=== PATIENT | female | born 1945 | race Caucasian/White ===

== ENCOUNTER 2017-04-04 07:11 | Inpatient (IN) | payer OTHER ==
[2017-03-13 11:40] VITALS: BMI 38.0
--- NOTE | 2017-03-13 12:22 | PAT Medication Instructions ---
Service Date Mar 13, 2017. Current Home Medication List Aspirin (Aspirin Ec), 81 MG PO QAM Celecoxib (CeleBREX), 200 MG PO QAM PRN for PRN Cholecalciferol (Vitamin D-3), 1,000 UNITS PO QAM Cod Liver Oil (Cod Liver Oil), 1 TAB PO QAM Fluoxetine (Prozac), 40 MG PO QAM Levothyroxine Sodium (Synthroid), 100 MCG PO QAM Metoprolol Succinate (Toprol Xl), 25 MG PO QAM Ondansetron Hcl (Zofran), 8 MG PO PRN PRN for Nausea Simvastatin (Zocor), 40 MG PO HS Triamterene/Hctz (Triamterene/Hctz 37.5-25MG), 1 TAB PO QAM Medication Instructions For Your Scheduled Surgery - Check with surgeon for instructions: Celecoxib (CeleBREX), 200 MG PO QAM PRN for PRN - Hold the following medications 2 weeks prior to surgery: Cod Liver Oil (Cod Liver Oil), 1 TAB PO QAM - Hold the following medications the morning of surgery: Triamterene/Hctz (Triamterene/Hctz 37.5-25MG), 1 TAB PO QAM Cholecalciferol (Vitamin D-3), 1,000 UNITS PO QAM - Take the following medications the morning of surgery with a sip of water: Metoprolol Succinate (Toprol Xl), 25 MG PO QAM Ondansetron Hcl (Zofran), 8 MG PO PRN PRN for Nausea (if needed) Levothyroxine Sodium (Synthroid), 100 MCG PO QAM Fluoxetine (Prozac), 40 MG PO QAM Aspirin (Aspirin Ec), 81 MG PO QAM (okay to continue per surgeon) - Take the following medications as scheduled the night before surgery: Simvastatin (Zocor), 40 MG PO HS Ondansetron Hcl (Zofran), 8 MG PO PRN PRN for Nausea (if needed) If you have any questions please call us at [phone] or [phone] or [phone]
--- NOTE | 2017-03-13 13:09 | DIAGNOSTIC IMAGING REPORT ---
CHEST PREADMISSION(PA/LAT) CLINICAL HISTORY: PAT preoperative evaluation COMPARISON STUDY: 05/13/2015 FINDINGS: The bones soft tissues and hemidiaphragms are normal. The cardiomediastinal silhouette is normal. The lungs are clear. The pulmonary vasculature is normal. IMPRESSION: Negative chest. The above report was generated using voice recognition software. It may contain grammatical, syntax or spelling errors. Electronically signed by: El Burch M.D. 03/13/2017 1:07 PM Dictated Date/Time: 03/13/2017 1:07 PM
[2017-03-13 13:33] LABS: BASO % 0.3 %; BASO ABS # 0.01 K/uL (0-0.2); COMPLETE YES; EOS % 5.7 %; HEMATOCRIT 45.8 % (37-47); IG% 0.3 %; LYMPH % 24.5 %; LYMPH ABS # 0.91 K/uL (1.2-3.4); MEAN CELL VOLUME 89.5 fL (80-100); MEAN CORPUSCULAR HEMOGLOBIN 28.3 pg (25-34); MEAN CORPUSCULAR HGB CONC 31.7 g/dl (32-36); MEAN PLATELET VOLUME 10.1 fL (7.4-10.4); NEUT % 55.2 %; PLATELET COUNT 155 K/uL (130-400); RED BLOOD COUNT 5.12 M/uL (4.2-5.4); WHITE BLOOD COUNT 3.71 K/uL (4.8-10.8)
[2017-03-13 13:48] LABS: PARTIAL THROMBOPLASTIN RATIO 0.9; PROTHROMBIN TIME (PATIENT) 10.3 SECONDS (9.0-12.0)
[2017-03-13 13:55] LABS: ESTIMATED AVERAGE GLUCOSE 120 mg/dl; HA1C FLAG Normal (Normal)
[2017-03-13 13:59] LABS: URINE APPEARANCE CLEAR (CLEAR); URINE BILIRUBIN NEG (NEG); URINE COLOR YELLOW; URINE NITRITE NEG (NEG); URINE PH 6.5 (4.5-7.5); URINE SPECIFIC GRAVITY 1.025 (1.000-1.030); UROBILINOGEN NEG (NEG)
[2017-03-13 14:06] LABS: MANUAL MICROSCOPIC REQUIRED? NO; REVIEW REQ? NO
--- NOTE | 2017-04-03 13:50 | HISTORY & PHYSICAL EXAMINATION ---
DATE OF ADMISSION: 04/04/2017 CHIEF COMPLAINT: Right hip pain. HISTORY OF PRESENT ILLNESS: The patient is a 71-year-old female with known osteoarthritis about her right hip. She is required to use a cane for ambulation due to pain. She has pain with prolonged weightbearing and standing activities. She has difficulty with any kneeling, bending, or squatting activities. Due to ongoing pain and disability, she now desires to proceed with right total hip arthroplasty. PAST MEDICAL HISTORY: Hypertension, hypercholesterolemia, unstable angina, sinus bradycardia, hypothyroidism. PAST SURGICAL HISTORY: Bilateral knee replacements by Dr. Oconnor. MEDICATIONS: Aspirin 81 mg daily, Celebrex 200 mg 2 times daily as needed, fluoxetine 40 mg daily, levothyroxine 100 mcg daily, omeprazole 20 mg before meal as needed, simvastatin 40 mg daily. ALLERGIES: ADHESIVES CAUSES A RASH, IODINE. SOCIAL HISTORY AND REVIEW OF SYSTEMS: Noncontributory. PHYSICAL EXAMINATION: GENERAL: Well-nourished, well-developed elderly female who appears her stated age. HEAD, EYES, EARS, NOSE, AND THROAT: Normocephalic, atraumatic, extraocular movements intact, oropharynx pink and moist. NECK: Supple without adenopathy. LUNGS: Clear to auscultation bilaterally. HEART: Regular rate and rhythm. ABDOMEN: Soft, nontender, nondistended, obese. EXTREMITIES: The upper extremities are within normal limits. The right hip demonstrates limited range of motion. There is limitation of active and passive internal/external rotation with pain. X-RAYS: X-rays were reviewed. She has moderate to severe osteoarthritis about the right hip with near complete loss of the joint space. There are large osteophytes about the femoral head and acetabulum. ASSESSMENT: Right hip degenerative joint disease. PLAN: Risks versus benefits were discussed. Consent was obtained. The patient's primary care physician is Dr. Cookie Palumbo from [place], her wound/ostomy clinical nurse specialist is Dr. Romero from [place]. Will proceed with right total hip arthroplasty upon preop workup and medical clearance.
[~2017-04-04] VITALS: Ht 172.7 cm; Wt 114.2 kg
[2017-04-04] VITALS (7 sets, daily range): BP systolic 114–167; BP diastolic 67–86; PULSE 57–63; TEMP 36.5–36.7; O2SAT 94–100; Ht 172.7 cm; Wt 114.2 kg
[~2017-04-04 07:11] MED LIST: ACETAMINOPHEN 500 MG TAB PO SCH; ASPI81TA28 PO; BUPIVACAINE 0.5 % 5 MG/1 ML PF 10ML VIAL ONE; CEFAZOLIN 2000 MG/60 ML D5W IV SCH; CHOL1TAB2 PO; CLB/200 PO; CODCAP PO; CeleBREX 200 MG CAP PO SCH; DEXAMETHASONE 4 MG TAB PO SCH; FAMOTIDINE 20 MG TAB PO SCH; FLUO40CA8 PO; GABAPENTIN 300 MG CAP PO SCH; LACTATED RINGER'S 1000ML 1,000 ML IV SCH; LACTATED RINGER'S 1000ML 500 ML IV ONE; LEVO100T PO; METOCLOPRAMIDE HCL 10 MG TAB PO SCH; OMEP20CA9 PO; ONDA8TAB6 PO; ROPIVACAINE 5MG/ML 30 ML 150 MG, BUPIVACAINE/EPINEPHR 0.5% MPF 30 ML, KETOROLAC TROMETH... INFIL SCH; ZCRT/40 PO
[2017-04-04] MEDS ORDERED: ONDANSETRON INJ 2 MG/ML 2 ML VIAL ONE (07:49)
[2017-04-04] MEDS ORDERED: LIDOCAINE HCL 2% 2 ML VIAL (20MG/ML) ONE (07:49)
[2017-04-04] MEDS ORDERED: PROPOFOL IV EMULSION 10 MG/ML 20 ML VIAL IV ONE (07:49)
[2017-04-04] MEDS ORDERED: MIDAZOLAM HCL 1 MG/ML 2ML VIAL ONE (07:50)
[2017-04-04] MEDS ORDERED: FENTANYL CITRATE INJ 50 MCG/1 ML 2 ML VIAL ONE (07:50)
[2017-04-04] MEDS ORDERED: METO25TA3 PO (08:04)
[2017-04-04] MEDS ORDERED: CeleBREX 200 MG CAP ONE (08:43)
[2017-04-04] MEDS ORDERED: DEXAMETHASONE 4 MG TAB ONE (08:43)
[2017-04-04] MEDS ORDERED: METOCLOPRAMIDE HCL 10 MG TAB PO ONE (08:43)
[2017-04-04] MEDS ORDERED: POVIDONE-IODINE OP SOLN 30 ML BTL ONE (08:43)
[2017-04-04] MEDS ORDERED: GABAPENTIN 300 MG CAP PO ONE (08:43)
[2017-04-04] MEDS ORDERED: FAMOTIDINE 20 MG TAB ONE (08:43)
[2017-04-04] MEDS ORDERED: BACITRACIN 50000 UNIT VIAL ONE (08:43)
[2017-04-04] MEDS ORDERED: ORTHO JOINT ANESTHETIC ONE (08:43)
[2017-04-04] MEDS ORDERED: ACETAMINOPHEN 500 MG TAB PO ONE (08:43)
[2017-04-04] MEDS ORDERED: NURSING VERBAL MED ORDER ONE (09:00)
[2017-04-04] MEDS ORDERED: EpHEDrine SULFATE INJ 50 MG/ML AMP IV PRN (09:00)
[2017-04-04] MEDS ORDERED: ONDANSETRON INJ 2 MG/ML 2 ML VIAL IV PRN ×2 (09:00→11:30)
[2017-04-04] MEDS ORDERED: FENTANYL CITRATE INJ 50 MCG/1 ML 2 ML VIAL IV PRN (09:00)
[2017-04-04] MEDS ORDERED: ATROPINE SULFATE 0.1 MG/ML 5ML SYR IV PRN (09:00)
--- NOTE | 2017-04-04 09:20 | History & Physical Bridge Note ---
H&P Re-Evaluation Bridge Note: I have examined the patient, reviewed the History & Physical and in the interval since the performance of the History & Physical I have noted the following changes of clinical significance: No changes noted
--- NOTE | 2017-04-04 10:43 | [facility] Operative Report ---
Operative Report Operative Date Apr 04, 2017. Pre-Operative Diagnosis Right hip degenerative joint disease Post-Operative Diagnosis Right hip degenerative joint disease Procedure(s) Performed Right total hip arthroplasty Surgeon Dr. Britt Vilchis Head Of Ict Surgeon(s) Mao West PA-C Estimated Blood Loss 150 mL Findings oa Specimens A: Right femoral head Drains privina and hemovac Disposition Recovery Room / PACU I attest to the content of the Intraoperative Record and any orders documented therein. Any exceptions are noted below.
[2017-04-04] MEDS ORDERED: MoRPHine SULFATE 2 MG/ML CARP IV PRN (11:30)
[2017-04-04] MEDS ORDERED: ALUMINUM/MAGNESIUM/SIMETH (MAALOX MAX) 30 ML UDC PO PRN (11:30)
[2017-04-04] MEDS ORDERED: METOCLOPRAMIDE HCL INJ 5 MG/ML 2 ML VIAL IV PRN (11:30)
[2017-04-04] MEDS ORDERED: ZOLPIDEM TARTRATE 5 MG TAB PO PRN (11:30)
[2017-04-04] MEDS ORDERED: MAGNESIUM HYDROXIDE SUSP 30 ML UDC PO PRN (11:30)
[2017-04-04] MEDS ORDERED: OXYCODONE HCL IR 5 MG TAB (IMMEDIATE RELEASE) PO PRN (11:30)
--- NOTE | 2017-04-04 11:31 | OPERATIVE REPORT ---
DATE OF OPERATION: 04/04/2017 PREOPERATIVE DIAGNOSIS: Osteoarthritis right hip. POSTOPERATIVE DIAGNOSIS: Osteoarthritis right hip. PROCEDURE: Right connective total hip arthroplasty. SURGEON: Dr. Contreras. LASER BEAM COLOR SCANNER OPERATOR: Mao West PA-C. ANESTHESIA: Spinal. COMPLICATIONS: None. OPERATION AND FINDINGS: PROCEDURE: Following induction of adequate spinal anesthesia, the patient was placed in left lateral decubitus position and right Krystyna-Langenbeck incision was made. Subcutaneous tissue was sharply dissected. Electrocautery used for hemostasis. The fascia was incised throughout the length of the wound and a david scissor placed beneath the short external rotators. The pyriformis was tagged with #1 Vicryl. The short external rotators were divided from the posterior aspect of the femur using electrocautery. These were swept posteriorly. A T-capsulotomy incision was made and the hip was dislocated using a combination of flexion, adduction, and internal rotation. Exposure of the femoral neck with old-style Hohmann and a blunt Hohmann was carried out and a femoral rasp was utilized as a guide for making the appropriate level femoral neck cut. This bone fragment was removed and reserved on the back table. Next, attention was turned to the acetabulum where bone hook was used to retract the femur while the offset retractors were placed anterior and posteriorly. A double-angled Hohmann was placed in superior and anterior position exposing the acetabulum nicely. Acetabular labrum as well as posterior capsule elements were removed using a long knife and a long pickup. Fovea centralis was cleared of all soft tissue. Sequential reamings were carried up to a size 52 and decision was made to proceed with impaction of a size 52 trabecular metal cup. This was impacted and held using a single 35 mm bone screw. The acetabular liner was placed with 15 of elevated posterior wall in the superior and posterior position. Next, attention was turned to the femoral portion of the case where a Bovie and pickup was used to further clear short external rotators from their insertion on the femur. Box osteotome was used to gain access to the femoral canal and the T-handled rasp and a rattail rasp were used to further open and lateral the canal. Sequentially raspings were carried up to a size 5 which gave good fit and fill of the proximal femur. A trial reduction was carried out and size 5 offset femoral neck component was chosen as the size to be used. A -2.5 x 36 mm ceramic femoral head was impacted into position, +0 head was utilized. The trial reduction was stable in all degrees of rotation with no [id number] impingement. The hip was dislocated. The trial components were removed and the final femoral stem, neck, and femoral head combination were assembled on the back table and impacted into position. Hip was relocated. Range of motion checked once again successful and the wound was irrigated. The pyriformis repaired to the greater trochanter using #1 Vicryl [id number] suture. A Hemovac drain was placed and the fascia was closed using #1 Vicryl, subcutaneous tissue was closed using 0 Dexon, and skin was closed with abebe. Sterile dressing of Adaptic, 4 x 4's, ABDs, and foam tape was applied. The patient tolerated the procedure well. Recovery room stable. Due to the complex nature of the procedure, the entire surgery was performed with the operational assistance of Mao West PA-C. The financial assistant, under direct supervision, was involved in the actual performance of all aspects of the surgical procedure including hemostasis, tissue retraction and incision, instrument management, patient positioning, and wound closure. I attest to the content of the Intraoperative Record and any orders documented therein. Any exception s are noted below.
--- NOTE | 2017-04-04 11:53 | DIAGNOSTIC IMAGING REPORT ---
AP PELVIS AND RIGHT HIP 2 VIEWS CLINICAL HISTORY: Postop hip arthroplasty COMPARISON STUDY: No previous studies for comparison. FINDINGS: There are postsurgical changes of a total right hip arthroplasty. Acetabular femoral components appear well seated. There is no dislocation. No acute fractures are visualized. There is an overlying surgical drain. IMPRESSION: Postsurgical changes of a total right hip arthroplasty. Electronically signed by: Newton Valles M.D. 04/04/2017 11:51 AM Dictated Date/Time: 04/04/2017 11:50 AM
--- NOTE | 2017-04-04 12:25 | Anesthesiology Progress Note ---
Anesthesia Post Op Note Date & Time Apr 04, 2017 at 12:24 Vital Signs Pain Intensity: 0 Vital Signs Past 12 Hours Date Time Temp Pulse Resp B/P (MAP) Pulse Ox O2 Delivery O2 Flow Rate FiO2 04/04/17 12:20 63 16 128/73 98 Nasal Cannula 2 04/04/17 12:10 63 16 118/82 98 Nasal Cannula 2 04/04/17 12:00 63 16 143/82 98 Nasal Cannula 2 04/04/17 11:50 37.1 63 16 135/82 100 Nasal Cannula 2 04/04/17 11:40 63 16 114/77 100 Nasal Cannula 2 04/04/17 11:30 63 16 124/72 100 Nasal Cannula 4 04/04/17 11:20 63 16 134/75 100 Nasal Cannula 4 04/04/17 11:14 36.1 63 16 119/76 99 Nasal Cannula 4 04/04/17 08:00 36.6 63 20 167/86 100 Room Air Notes Mental Status: alert / awake / arousable, participated in evaluation Pt Amnestic to Procedure: Yes Nausea / Vomiting: adequately controlled Pain: adequately controlled Airway Patency, RR, SpO2: stable & adequate BP & HR: stable & adequate Hydration State: stable & adequate Neuraxial Anesthesia: was administered, sensory block is resolving Anesthetic Complications: no major complications apparent
[2017-04-04] MEDS ORDERED: MoRPHine SULFATE 4 MG/ML 1 ML CARP\\VIAL IV PRN (13:30)
--- NOTE | 2017-04-04 14:15 | Medical Consult ---
Consultation Date of Consultation: Apr 04, 2017. Attending Physician: Kb Contreras M.D. Reason for Consultation: postop medical management History of Present Illness Patient seen and examined after undergoing PAOLA today by Dr. Contreras. Patient is doing well, eating lunch. No postop pain yet. Denies fever, dizziness, chest pain, SOB, N/V. Has not voided yet after procedure. Last BM was yesterday. Past Medical/Surgical History Medical Problems: (1) HTN (hypertension) Status: Chronic (2) Hyperlipidemia Status: Chronic (3) Hypothyroidism Status: Chronic (4) Mild nonobstructive CAD Permanent Comment: on 2016 Status: Chronic (5) Sinus bradycardia Status: Chronic Surgical Problems: (1) H/O tubal ligation Status: Chronic (2) History of cataract surgery Status: Chronic (3) S/P appendectomy Status: Chronic (4) S/P foot surgery Status: Chronic (5) S/P knee replacement Permanent Comment: bilateral Status: Chronic (6) S/P placement of cardiac pacemaker Permanent Comment: 03/20/17 Status: Chronic (7) S/P tonsillectomy and adenoidectomy Status: Chronic (8) Status post breast reduction Status: Chronic Family History FH: CAD (coronary artery disease) MOTHER Stroke FATHER Social History Smoking Status: Never Smoker Alcohol Use: occasionally Drug Use: none Allergies Coded Allergies: Adhesives (Verified Allergy, Unknown, TAPE-REDNESS SMALL HIVES-YRS AGO- PAPER TAPE [place], 04/04/17) Atenolol (Verified Allergy, Unknown, LEG WEAKNESS, 04/04/17) Lisinopril (Verified Allergy, Unknown, COUGH, 04/04/17) Povidone Iodine (Verified Allergy, Unknown, IODINE PREP 39 YRS AGO- REDNESS ,SMALL HIVES, 04/04/17) Home Medications Active Reported Toprol-Xl (Metoprolol Succinate) 25 Mg Tabcr 25 Mg PO DAILY Prilosec (Omeprazole) 20 Mg Cap 20 Mg PO DAILY PRN Zofran (Ondansetron HCl) 8 Mg Tab 8 Mg PO PRN PRN Aspirin Ec (Aspirin) 81 Mg Tab 81 Mg PO QAM CeleBREX (Celecoxib) 200 Mg Cap 200 Mg PO QAM PRN Cod Liver Oil 1 Cap Cap 1 Tab PO QAM Vitamin D-3 (Cholecalciferol) 1,000 Unit Tab 1,000 Units PO QAM Synthroid (Levothyroxine Sodium) 100 Mcg Tab 100 Mcg PO QAM Zocor (Simvastatin) 40 Mg Tab 40 Mg PO HS Prozac (Fluoxetine HCl) 40 Mg Cap 40 Mg PO QAM Current Inpatient Medications Current Inpatient Medications Medications (Trade) Dose Ordered Sig/Steven Route Start Time Stop Time Status Last Admin Dose Admin Lactated Ringer's 1,000 ml @ 15 mls/hr Q24H IV 04/04/17 06:00 04/05/17 05:59 04/04/17 08:13 15 MLS/HR Cefazolin Sodium 60 ml @ 100 mls/hr PREOP IV 04/04/17 06:00 04/04/17 18:00 04/04/17 09:33 100 MLS/HR Acetaminophen (Tylenol Tab) 1,000 mg PREOP PO 04/04/17 06:00 04/04/17 13:59 Celecoxib (CeleBREX CAP) 200 mg PREOP PO 04/04/17 06:00 04/04/17 13:59 Dexamethasone (Decadron Tab) 8 mg PREOP PO 04/04/17 06:00 04/04/17 13:59 Famotidine (Pepcid Tab) 20 mg PREOP PO 04/04/17 06:00 04/04/17 13:59 Gabapentin (Neurontin Cap) 300 mg PREOP PO 04/04/17 06:00 04/04/17 13:59 Metoclopramide HCl (Reglan Tab) 10 mg PREOP PO 04/04/17 06:00 04/04/17 13:59 Fentanyl Citrate (Fentanyl Inj) 50 mcg Q5M PRN IV 04/04/17 09:00 04/04/17 14:00 Ondansetron HCl (Zofran Inj) 4 mg ONE PRN IV 04/04/17 09:00 04/04/17 14:00 Ephedrine Sulfate (EpHEDrine SULFATE INJ) 5 mg Q5M PRN IV 04/04/17 09:00 04/04/17 14:00 Atropine Sulfate (Atropine Sulfate 0.1MG/Ml Inj) 0.5 mg Q1M PRN IV 04/04/17 09:00 04/04/17 14:00 Potassium Chloride/Dextrose/ Sod Cl 1,000 ml @ 100 mls/hr Q10H IV 04/04/17 13:12 04/05/17 13:11 Ketorolac Tromethamine (Toradol Inj) 15 mg Q6H IV. 04/04/17 14:00 04/05/17 13:59 Celecoxib (CeleBREX CAP) 200 mg BID PO 04/05/17 21:00 05/05/17 20:59 Oxycodone HCl (Roxicodone Immediate Rel Tab) 1 TABLET FOR PAIN RATING... Q4H PRN PO 04/04/17 11:30 04/18/17 11:29 Morphine Sulfate (MoRPHine SULFATE INJ) 2 mg Q2HWA PRN IV 04/04/17 11:30 04/18/17 11:29 Acetaminophen (Tylenol Tab) 1,000 mg Q8H PO 04/04/17 16:00 05/04/17 15:59 Magnesium Hydroxide (Milk Of Magnesia Susp) 30 ml Q6H PRN PO 04/04/17 11:30 05/04/17 11:29 Docusate Sodium (coLACE CAP) 100 mg BID PO 04/04/17 21:00 05/04/17 20:59 Diphenhydramine HCl (Benadryl Cap) 25 mg Q8H PRN PO 04/04/17 11:30 05/04/17 11:29 Al Hydrox/Mg Hydrox/Simethicone (Maalox Max Susp) 15 ml Q4H PRN PO 04/04/17 11:30 05/04/17 11:29 Zolpidem Tartrate (Ambien Tab) 5 mg HSZ PRN PO 04/04/17 11:30 05/04/17 11:29 Multivitamins (Multivitamin Tab) 1 tab QAM PO 04/05/17 09:00 05/05/17 08:59 Ondansetron HCl (Zofran Inj) 4 mg Q6H PRN IV 04/04/17 11:30 05/04/17 11:29 Metoclopramide HCl (Reglan Inj) 10 mg Q6H PRN IV 04/04/17 11:30 05/04/17 11:29 Ferrous Gluconate (Ferrous Gluconate Tab) 324 mg TIDM PO 04/04/17 17:45 05/04/17 17:44 Pantoprazole Sodium (Protonix Tab) 40 mg QAM PO 04/05/17 09:00 05/05/17 08:59 Cefazolin Sodium 2000 mg/Dextrose 60 ml @ 100 mls/hr Q8H IV 04/04/17 18:00 04/05/17 02:35 Dexamethasone Sodium Phosphate 10 mg/Syringe 2.5 ml @ 1 mls/min TODAY@0730 IV 04/05/17 07:30 04/05/17 07:33 Aspirin (Ecotrin Tab) 81 mg BID PO 04/04/17 21:00 05/04/17 20:59 Cholecalciferol (Vitamin D Tab) 1,000 inter.unit QAM PO 04/05/17 09:00 05/05/17 08:59 Fluoxetine HCl (Prozac Cap) 40 mg QAM PO 04/05/17 09:00 05/05/17 08:59 Levothyroxine Sodium (Synthroid Tab) 100 mcg DAILYBB PO 04/05/17 06:00 05/05/17 05:59 Metoprolol Succinate (Toprol Xl Tab) 25 mg DAILY PO 04/05/17 09:00 05/05/17 08:59 Simvastatin (Zocor Tab) 40 mg HS PO 04/04/17 21:00 05/04/17 20:59 Morphine Sulfate (MoRPHine SULFATE INJ) 4 mg Q2HWA PRN IV 04/04/17 13:30 04/18/17 13:29 Review of Systems Constitutional- no fever; no weight loss Eyes- no acute visual changes ENT- no sinus drainage; no pharyngitis Pulmonary- no cough, no wheezing, no shortness of breath Cardiac- no chest pain, no palpitations, no orthopnea, no dependent edema GI- no nausea, no vomiting, no diarrhea, no melena, no hematochezia - no dysuria, no hematuria Musculoskeletal- mild hip pain on the surgical site Derm- no rashes, no new skin lesions, no changing skin lesions Hematologic- no unusual bruising, no unusual bleeding Lymphatics- no adenopathy Endocrine- no polyuria or polydipsia; no heat or cold intolerance Neuro- no headaches, no focal neurologic symptoms Psych- no anxiety, no depression Physical Exam Date Time Temp Pulse Resp B/P (MAP) Pulse Ox O2 Delivery O2 Flow Rate FiO2 04/04/17 13:30 36.5 57 17 140/84 (102) 99 Nasal Cannula 2.0 04/04/17 12:57 60 134/83 (100) 99 Nasal Cannula 2.0 04/04/17 12:30 Nasal Cannula 2.0 04/04/17 12:30 36.7 63 18 129/84 (99) 98 Nasal Cannula 2.0 04/04/17 12:20 63 16 128/73 98 Nasal Cannula 2 04/04/17 12:10 63 16 118/82 98 Nasal Cannula 2 04/04/17 12:00 63 16 143/82 98 Nasal Cannula 2 04/04/17 11:50 37.1 63 16 135/82 100 Nasal Cannula 2 04/04/17 11:40 63 16 114/77 100 Nasal Cannula 2 04/04/17 11:30 63 16 124/72 100 Nasal Cannula 4 04/04/17 11:20 63 16 134/75 100 Nasal Cannula 4 04/04/17 11:14 36.1 63 16 119/76 99 Nasal Cannula 4 04/04/17 08:00 36.6 63 20 167/86 100 Room Air General Appearance: no apparent distress, + obese Head: normocephalic, atraumatic Eyes: normal inspection ENT: hearing grossly normal Neck: supple, trachea midline Respiratory/Chest: lungs clear, normal breath sounds, no respiratory distress, no accessory muscle use Cardiovascular: regular rate, rhythm, no murmur, + pertinent finding ( pacemaker site appears to be healing well) Abdomen/GI: normal bowel sounds, non tender, soft Extremities/Musculoskelatal: no calf tenderness, no pedal edema, + pertinent finding (s/p right PAOLA, dressing in place, Hemovac with sanguinous drianage) Neurologic/Psych: alert, normal mood/affect, oriented x 3, + pertinent finding (able to flex/ extend ankles bilaterally. sensation to light touch intact bilateral feet. ) Skin: normal color, warm/dry Assessment & Plan S/P RIGHT PAOLA POD #[address] Contreras Doing well postoperatively Pain control, wound care, activity per ortho Monitor daily H/H for sign of acute blood loss anemia HYPERTENSION Stable, continue metoprolol DYSLIPIDEMIA Continue statin HYPOTHYROIDISM Continue levothyroxine MILD NONOBSTRUCTIVE CAD Stable, continue aspirin, statin, beta chance DEPRESSION Continue fluoxetine H/O SINUS BRADYCARDIA S/p pacemaker, stable DVT PROPHYLAXIS Per ortho Patient seen in collaboration with Dr. Pérez. Please see his addendum. Patient will be followed by Dr. Cowan tomorrow. ATTENDING ADDENDUM care coordinated with DEYSI Frey please refer to her notes for full details, I agree with her notes patient seen and examined, records reviewed by myself as well on exam, patient seen resting in bedside chair in good spirits denies any symptoms hip pain adequately controlled no other symptoms VS noted and reviewed oriented x 3, not in distress, speaks in sentences with no effort nor accessory muscle use normal rate, regular rhythm, no murmurs; pacemaker site with no signs of infection clear breath sounds bilaterally non distended, soft, nontender no bipedal edema, erythema, warmth hip with wound vac in place no neuro deficits no labs yet ASSESSMENT/PLAN> RECENT PACEMAKER INSERTION FOR BRADYCARDIA - HR normal denies cardiac symptoms HISTORY OF CAD - no cardiac symptoms continue usual cardiac meds as noted above monitor other diagnoses and plan of care as per DEYSI Frey's notes Leland Pérez MD
[2017-04-04] MEDS: D5W AND 1/2NSS + 20MEQ KCL 1,000 ML IV SCH (15:24)
[2017-04-04] MEDS: KETOROLAC TROMETHAMINE 15 MG/ML VIAL IV. SCH ×2 (15:24→20:02)
[2017-04-04] MEDS: ACETAMINOPHEN 500 MG TAB PO SCH (15:25)
[2017-04-04] MEDS: CEFAZOLIN IV 2,000 MG in DEXTROSE 5% 50ML 50 ML IV SCH (17:18)
[2017-04-04] MEDS: FERROUS GLUCONATE 324 MG TAB PO SCH (17:18)
[2017-04-04] MEDS: ASPIRIN 81 MG ECTAB PO SCH (20:36)
[2017-04-04] MEDS: DOCUSATE SODIUM 100 MG CAP PO SCH (20:36)
[2017-04-04] MEDS ORDERED: SIMVASTATIN 40 MG TAB PO SCH (21:00)
[2017-04-05] MEDS: ACETAMINOPHEN 500 MG TAB PO SCH ×3 (00:04→15:39)
[2017-04-05] MEDS: D5W AND 1/2NSS + 20MEQ KCL 1,000 ML IV SCH ×2 (00:04→08:46)
[2017-04-05] MEDS: CEFAZOLIN IV 2,000 MG in DEXTROSE 5% 50ML 50 ML IV SCH (02:00)
[2017-04-05] MEDS: KETOROLAC TROMETHAMINE 15 MG/ML VIAL IV. SCH ×2 (02:00→08:42)
[2017-04-05 02:45] VITALS: BP 148/74; PULSE 65; TEMP 36.5; O2SAT 97
[2017-04-05 06:00] LABS: COMPLETE YES; HEMATOCRIT 37.1 % (37-47); IG% 0.2 %; LYMPH % 5.7 %; LYMPH ABS # 0.52 K/uL (1.2-3.4); MEAN CELL VOLUME 88.5 fL (80-100); MEAN CORPUSCULAR HEMOGLOBIN 27.9 pg (25-34); MEAN CORPUSCULAR HGB CONC 31.5 g/dl (32-36); MEAN PLATELET VOLUME 9.7 fL (7.4-10.4); MONO % 8.2 %; NEUT % 85.9 %; PLATELET COUNT 126 K/uL (130-400); RED BLOOD COUNT 4.19 M/uL (4.2-5.4); WHITE BLOOD COUNT 9.17 K/uL (4.8-10.8)
[2017-04-05] MEDS ORDERED: LEVOTHYROXINE 100 MCG TAB PO SCH (06:00)
[2017-04-05 06:34] LABS: BUN/CREATININE RATIO 28.4 (10-20); CALCIUM 8.6 mg/dl (8.5-10.1); CREATININE 0.75 mg/dl (0.60-1.20); POTASSIUM 4.3 mmol/L (3.5-5.1)
[2017-04-05 07:10] VITALS: BP 160/77; PULSE 60; TEMP 36.8; O2SAT 98
--- NOTE | 2017-04-05 07:16 | Orthopedic Progress Note ---
Orthopedic Progress Note Date of Service Apr 05, 2017. Subjective Post OP Day: 1 Reports: feeling well, Denies: complaints Objective calves soft nontender, N/V intact, hip located, dressing C/D/I (Prevena intact) , A&O x3, toes mobile Date Time Temp Pulse Resp B/P (MAP) Pulse Ox O2 Delivery O2 Flow Rate FiO2 04/05/17 07:10 36.8 60 18 160/77 (104) 98 Room Air 04/05/17 02:45 36.5 65 18 148/74 (98) 97 Room Air 04/04/17 22:52 36.5 63 18 131/76 (94) 98 Room Air 04/04/17 20:00 Room Air 04/04/17 15:44 61 123/78 (93) 94 Nasal Cannula 2.0 04/04/17 14:30 36.5 61 16 114/67 (83) 99 Nasal Cannula 2.0 04/04/17 13:30 36.5 57 17 140/84 (102) 99 Nasal Cannula 2.0 04/04/17 12:57 60 134/83 (100) 99 Nasal Cannula 2.0 04/04/17 12:30 Nasal Cannula 2.0 04/04/17 12:30 Nasal Cannula 2.0 04/04/17 12:30 36.7 63 18 129/84 (99) 98 Nasal Cannula 2.0 04/04/17 12:20 63 16 128/73 98 Nasal Cannula 2 04/04/17 12:10 63 16 118/82 98 Nasal Cannula 2 04/04/17 12:00 63 16 143/82 98 Nasal Cannula 2 04/04/17 11:50 37.1 63 16 135/82 100 Nasal Cannula 2 04/04/17 11:40 63 16 114/77 100 Nasal Cannula 2 04/04/17 11:30 63 16 124/72 100 Nasal Cannula 4 04/04/17 11:20 63 16 134/75 100 Nasal Cannula 4 04/04/17 11:14 36.1 63 16 119/76 99 Nasal Cannula 4 04/04/17 08:00 36.6 63 20 167/86 100 Room Air Laboratory Results 24 Hours: Test 04/05/17 05:21 White Blood Count 9.17 K/uL Red Blood Count 4.19 M/uL Hemoglobin 11.7 g/dL Hematocrit 37.1 % Mean Corpuscular Volume 88.5 fL Mean Corpuscular Hemoglobin 27.9 pg Mean Corpuscular Hemoglobin Concent 31.5 g/dl Platelet Count 126 K/uL Mean Platelet Volume 9.7 fL Neutrophils (%) (Auto) 85.9 % Lymphocytes (%) (Auto) 5.7 % Monocytes (%) (Auto) 8.2 % Eosinophils (%) (Auto) 0.0 % Basophils (%) (Auto) 0.0 % Neutrophils # (Auto) 7.88 K/uL Lymphocytes # (Auto) 0.52 K/uL Monocytes # (Auto) 0.75 K/uL Eosinophils # (Auto) 0.00 K/uL Basophils # (Auto) 0.00 K/uL Assessment & Plan Assessment: POD 1 s/p Right PAOLA Plan: PT/OT today Planning on doing her own therapy at home like previous times. Inhouse Planning Pain Management: Celebrex, Toradol, Morphine, Oxy IR DVT Prophylaxis: TEDs, SCDs, ASA Discharge Planning Discharge Planning: home
[2017-04-05] MEDS ORDERED: DEXAMETHASONE INJ 10 MG in SYRINGE 0 ML IV SCH (07:30)
--- NOTE | 2017-04-05 08:26 | Anesthesiology Progress Note ---
Anesthesia Post Op Note Date & Time Apr 05, 2017 at 08:26 Vital Signs Pain Intensity: 0.0 Vital Signs Past 12 Hours Date Time Temp Pulse Resp B/P (MAP) Pulse Ox O2 Delivery O2 Flow Rate FiO2 04/05/17 07:55 Room Air 04/05/17 07:10 36.8 60 18 160/77 (104) 98 Room Air 04/05/17 02:45 36.5 65 18 148/74 (98) 97 Room Air 04/04/17 22:52 36.5 63 18 131/76 (94) 98 Room Air Notes Mental Status: alert / awake / arousable, participated in evaluation Pt Amnestic to Procedure: Yes Nausea / Vomiting: adequately controlled Pain: adequately controlled Airway Patency, RR, SpO2: stable & adequate BP & HR: stable & adequate Hydration State: stable & adequate Neuraxial Anesthesia: was administered, sensory block resolved Anesthetic Complications: no major complications apparent
[2017-04-05] MEDS: FERROUS GLUCONATE 324 MG TAB PO SCH ×2 (08:43→13:28)
[2017-04-05] MEDS: ASPIRIN 81 MG ECTAB PO SCH (08:43)
[2017-04-05] MEDS: DOCUSATE SODIUM 100 MG CAP PO SCH (08:43)
[2017-04-05] MEDS ORDERED: FLUOXETINE HCL 20 MG CAP PO SCH (09:00)
[2017-04-05] MEDS ORDERED: MULTIVITAMIN TAB PO SCH (09:00)
[2017-04-05] MEDS ORDERED: METOPROLOL SUCC 25MG EXT REL TAB PO SCH (09:00)
[2017-04-05] MEDS ORDERED: CHOLECALCIFEROL 1000 INTER.UNIT TAB PO SCH (09:00)
[2017-04-05] MEDS ORDERED: PANTOprazole SOD 40 MG TAB PO SCH (09:00)
[2017-04-05 12:13] VITALS: BP 146/83; PULSE 64; TEMP 36.7; O2SAT 98
[2017-04-05] MEDS ORDERED: CLB/200 PO (12:16)
[2017-04-05] MEDS ORDERED: RXC5 PO (12:16)
[2017-04-05] MEDS ORDERED: ACET-24 PO (12:16)
[2017-04-05] MEDS ORDERED: ASPI81TA28 PO (12:16)
--- NOTE | 2017-04-05 12:19 | Discharge Instructions ---
Discharge Instructions Date of Service Apr 05, 2017. Admission Reason for Admission: Right Hip Osteoarthritis Discharge Discharge Diagnosis / Problem: Right Hip Osteoarthritis Discharge Goals Goal(s): Decrease discomfort, Improve function, Increase independence Activity Recommendations Activity Limitations: per Instructions/Follow-up section Weightbearing Status: Right weightbearing (as tolerated) . Instructions / Follow-Up Instructions / Follow-Up ACTIVITY RECOMMENDATIONS: SELF CARE INSTRUCTIONS AFTER TOTAL HIP REPLACEMENT Until the incision and soft tissues around your hip have healed, there is a possibility that the hip prosthesis could dislocate. A. Observe the following precautions to prevent dislocation: 1. Don't bend your hip greater than 90 degrees. 2. Avoid crossing your legs or ankles while standing or lying. 3. Sit with your feet placed 6 inches apart. 4. When sitting, keep your knees below your hips. Sit on a firm surface, avoid deep, soft chairs and couches. Use an elevated toilet seat in the bathroom. 5. Don't bend over at the waist. Use a long handled shoehorn and a sock aid to help you put on your shoes and socks. A shift production associate can help you worm picker objects that are too high or too low to reach. 6. Keep car riding to a minimum for at least one month after surgery. B. Your balance may be shaky for a while. Use crutches or a walker until directed by your doctor. C. Use hand rails when walking on stairs. D. Wear low heeled shoes with non-slip soles. E. Be sure that your floors are free of things that could trip you - throw rugs , electrical cords, small objects. Avoid wet and waxed floors, especially with crutches and canes. F. Try to walk several times a day with rest periods between. G. Continue with all the exercises taught to you in the hospital. Again, make walking a part of your daily routine. SPECIAL CARE INSTRUCTIONS: VERY IMPORTANT TO READ AND REVIEW A. You may still be at risk for phlebitis and blood clots. 1. Wear surgical stockings (ADELAIDA hose) for 2 weeks after surgery to improve circulation and reduce swelling. 2. Take Aspirin 81mg twice daily for 4 weeks or as directed by your doctor. This is your blood thinner. 3. High risk patients may be prescribed a stronger blood thinner if necessary. 4. If you are on Coumadin normally, your family doctor/proof load mechanic should monitor your blood work. Expect a phone call the day of or the day after bloodwork is drawn to adjust your dosage. B. You must take antibiotics before having dental work, bladder, bowel and other surgery. Your doctor will provide you with a permanent card to carry describing precautions. C. Call [facility] if you have a fever, redness or swelling around the incision, cloudy drainage from incision, or sudden increase in pain in your hip, not relieved by your regular pain medication. D. Please call the office at if you have any concerns or questions about your operation or recovery. * YOU MAY SHOWER, NO TUB BATHS UNTIL CLEARED BY YOUR DOCTOR. * WEAR ADELAIDA HOSE 20 HOURS PER DAY FOR 2 WEEKS. * YOU SHOULD USE A WALKER OR CRUTCHES FOR 2-4 WEEKS. THIS WILL HELP PREVENT STRAIN ON YOUR HIP MUSCLE AND ALLOW IT TO HEAL PROPERLY. YOU MAY WEAN TO A CANE TOLERATED. * MOST PATIENTS WILL HAVE HOME NURSING FOR THERAPY. IF YOU DECIDE TO DO OUTPATIENT PHYSICAL THERAPY, PLEASE SCHEDULE THIS 3 TIMES PER WEEK. * Change dressing daily if it continues to drain. This is normal. If wound is dry, you may leave to the open air if you have abebe. If you have the Zip closure system, keep the wound covered at all times with a dressing. Call the office if you have any questions. [phone] FOLLOW UP VISIT: If appointment is not already scheduled: Please call [facility] to make a follow-up appointment for 2 weeks after your surgery at . Current Hospital Diet Patient's current hospital diet: Regular Diet Discharge Diet Recommended Diet: Regular Diet Procedures Procedures Performed: Right total hip arthroplasty Pending Studies Studies pending at discharge: no Laboratory Results Hemoglobin A1c Test 03/13/17 12:29 Range/Units Estimated Average Glucose 120 mg/dl Hemoglobin A1c 5.8 H 4.5-5.6 % Medical Emergencies . Who to Call and When: Medical Emergencies: If at any time you feel your situation is an emergency, please call 911 immediately. . Non-Emergent Contact Non-Emergency issues call your: Surgeon Call Non-Emergent contact if: temperature is above 101.5, your pain is not controlled, your pain is worsening, wound has increased drainage, wound has increased redness . "Provider Documentation" section prepared by Roger Boyd. . VTE Core Measure Inpt VTE Proph given/why not?: Other Anticoagulation, T.E.DMayra Stockings, SCD's [place] Drug Monitoring Program Search Results: patient reviewed within database, no issues identified
[2017-04-05 15:15] VITALS: BP 146/83; PULSE 64; TEMP 36.7; O2SAT 98
--- NOTE | 2017-04-05 16:40 | ORTHOPEDIC PROGRESS NOTE ---
DATE: 04/05/2017 I was asked to see the patient prior to her discharge during a dressing change, where the Prevena wound VAC was being removed. It was noted that she was having some bleeding at the distal portion of her incision and also noticed that it appeared that the zip closure system that was used was coming off of the skin and not functioning very well. PHYSICAL EXAMINATION: I came in and removed the dressing that they placed on the patient. She did have moderate amount of drainage noted on the distal portion of her incision. When this was removed, it appeared that the zip closure system was intact; however, with further inspection, the very distal portion of the system was not really sticking well to the skin and came up off of the skin fairly readily. This portion was trimmed off and the area was cleansed with alcohol. At that point, a new portion of zip closure system was then applied to the very distal end, approximately 3 cm long and was tightened down with good results. The wound itself was not gaping open by any means and appeared completely closed prior to doing this. The rest of the zip closure system was sticking well to the skin. It was then covered with 4 x 4 gauze and ABDs and a large Tegaderm dressings were then placed over top of this. The patient is still okay for discharge. She will be seeing home nursing on a regular basis and they will change her dressing on a regular basis as well. If she has any further questions or concerns with her incision, she can call the office.
[2017-04-05] MEDS ORDERED: CeleBREX 200 MG CAP PO SCH (21:00)
--- NOTE | 2017-04-15 15:32 | OPERATIVE REPORT ---
DATE OF OPERATION: 04/04/2017 PREOPERATIVE DIAGNOSIS: Osteoarthritis, right hip. POSTOPERATIVE DIAGNOSIS: Osteoarthritis, right hip. PROCEDURE: Osteoarthritis, right hip. SURGEON: Dr. Contreras. PULPWOOD CUTTER: Mao West PA-C. ANESTHESIA: Spinal. COMPLICATIONS: None. OPERATION AND FINDINGS: Acetabular reamer used 52, acetabular shell 52, femoral stem 5, femoral head -2.5 x 36 mm ceramic. Recovery room stable. OPERATION AND FINDINGS: PROCEDURE: Following induction of adequate spinal anesthesia, the patient was placed in lateral decubitus position and 52 Krystyna-Langenbeck incision was made. Subcutaneous tissue was sharply dissected. Electrocautery used for hemostasis. The fascia was incised throughout the length of the wound and a david scissor placed beneath the short external rotators. The pyriformis was tagged with #1 Vicryl. The short external rotators were divided from the posterior aspect of the femur using electrocautery. These were swept posteriorly. A T-capsulotomy incision was made and the hip was dislocated using a combination of flexion, adduction, and internal rotation. Exposure of the femoral neck with old-style Hohmann and a blunt Hohmann was carried out and a femoral rasp was utilized as a guide for making the appropriate level femoral neck cut. This bone fragment was removed and reserved on the back table. Next, attention was turned to the acetabulum where bone hook was used to retract the femur while the offset retractors were placed anterior and posteriorly. A double-angled Hohmann was placed in superior and anterior position exposing the acetabulum nicely. Acetabular labrum as well as posterior capsule elements were removed using a long knife and a long pickup. Fovea centralis was cleared of all soft tissue. Sequential reamings were carried up to a 52 and decision was made to proceed with impaction of a 5 trabecular metal cup. This was impacted and held using a single 35 mm bone screw. The acetabular liner was placed with 15 of elevated posterior wall in the superior and posterior position. Next, attention was turned to the femoral portion of the case where a Bovie and pickup was used to further clear short external rotators from their insertion on the femur. Box osteotome was used to gain access to the femoral canal and the T-handled rasp and a rattail rasp were used to further open and lateral the canal. Sequentially raspings were carried up to a 5 which gave good fit and fill of the proximal femur. A trial reduction was carried out and 52 offset femoral neck component was chosen as the size to be used. A -2.5 x 36 mm femoral head was impacted into position, +0 head was utilized. The trial reduction was stable in all degrees of rotation with no [id number] impingement. The hip was dislocated. The trial components were removed and the final femoral stem, neck, and femoral head combination were assembled on the back table and impacted into position. Hip was relocated. Range of motion checked once again successful and the wound was irrigated. The pyriformis repaired to the greater trochanter using #1 Vicryl [id number] suture. A Hemovac drain was placed and the fascia was closed using #1 Vicryl, subcutaneous tissue was closed using 0 Dexon, and skin was closed with abebe. Sterile dressing of Adaptic, 4 x 4's, ABDs, and foam tape was applied. The patient tolerated the procedure well. Due to the complex nature of the procedure, the entire surgery was performed with the operational assistance of Mao West PA-C. The assistant manager quality management, under direct supervision, was involved in the actual performance of all aspects of the surgical procedure including hemostasis, tissue retraction and incision, instrument management, patient positioning, and wound closure. I attest to the content of the Intraoperative Record and any orders documented therein. Any exception s are noted below.
== END 2017-04-05 16:45 | disposition home health service (06) | DRG 470 ==
LOC: C.ACU 07:11 → C.3E 09:22 → ENRESERV 12:11
PROC: 0SR90JZ Replacement of Right Hip Joint with Synthetic Substitute, Open Approach (ICD-10-PCS; principal; 2017-04-04 09:00)
DX: M16.11 Unilateral primary osteoarthritis, right hip (principal); I10 Essential (primary) hypertension; E78.5 Hyperlipidemia, unspecified; E03.9 Hypothyroidism, unspecified; I25.10 Atherosclerotic heart disease of native coronary artery without angina pectoris; F32.9 Major depressive disorder, single episode, unspecified; E66.9 Obesity, unspecified; Z68.38 Body mass index [BMI] 38.0-38.9, adult; Z96.653 Presence of artificial knee joint, bilateral; Z95.0 Presence of cardiac pacemaker; Z86.79 Personal history of other diseases of the circulatory system; Z79.82 Long term (current) use of aspirin; Z79.899 Other long term (current) drug therapy; Z82.49 Family history of ischemic heart disease and other diseases of the circulatory system; Z82.3 Family history of stroke

== ENCOUNTER → 2017-04-17 | Outpatient (CLI) | payer OTHER ==
[~2017-04-17] MED LIST changes: +ACET-24 PO; -ACETAMINOPHEN 500 MG TAB PO SCH; -BUPIVACAINE 0.5 % 5 MG/1 ML PF 10ML VIAL ONE; -CEFAZOLIN 2000 MG/60 ML D5W IV SCH; -CeleBREX 200 MG CAP PO SCH; -DEXAMETHASONE 4 MG TAB PO SCH; -FAMOTIDINE 20 MG TAB PO SCH; -GABAPENTIN 300 MG CAP PO SCH; -LACTATED RINGER'S 1000ML 1,000 ML IV SCH; -LACTATED RINGER'S 1000ML 500 ML IV ONE; +METO25TA3 PO; -METOCLOPRAMIDE HCL 10 MG TAB PO SCH; -ROPIVACAINE 5MG/ML 30 ML 150 MG, BUPIVACAINE/EPINEPHR 0.5% MPF 30 ML, KETOROLAC TROMETH... INFIL SCH; +RXC5 PO
--- NOTE | 2017-04-17 14:32 | DIAGNOSTIC IMAGING REPORT ---
RIGHT HIP CT CT DOSE: 627.15 mGy.cm HISTORY: RIGHT HIP PAIN, R/O FX TECHNIQUE: Multiaxial CT images of the right hip were performed and reformatted in the sagittal and coronal plane without the use of contrast. A dose lowering technique was utilized adhering to the principles of ALARA. COMPARISON: Right hip 04/04/2017. FINDINGS: There is again noted a right total arthroplasty. There is nondisplaced fracture within the base of the right greater trochanter. This does not extend to the lesser trochanter. Otherwise, the proximal shaft of the right femur is intact. There is a single acetabular screw which extends 1 cm beyond the medial wall of the acetabulum. No fractures within the visualized pelvic bones. Partially visualized subcutaneous fluid along the lateral aspect of the right hip is likely due to the recent postoperative change. IMPRESSION: 1. Nondisplaced fracture at the base of the right greater trochanter. 2. Right total hip arthroplasty. The hardware appears intact. Electronically signed by: Ludwin Garcia M.D. 04/17/2017 2:31 PM Dictated Date/Time: 04/17/2017 2:26 PM
== END | disposition home or self-care (01) ==
LOC: C.CTS 14:05
DX: Z96.641 Presence of right artificial hip joint (principal)